=== PATIENT | female | born 1985 | race Caucasian/White ===

== ENCOUNTER 2018-04-25 18:43 | Emergency (ER) | payer BC ==
--- NOTE | 2018-04-25 19:18 | EDM.PDOC ---
ED HPI GENERAL MEDICAL PROBLEM - General Chief Complaint: Genitourinary Problem Stated Complaint: vaginal bleeding and cramping Time Seen by Provider: 04/25/18 19:02 Source of Information: Reports: Patient History Limitations: Reports: No Limitations - History of Present Illness INITIAL COMMENTS - FREE TEXT/NARRATIVE: Patient presents to ER with concerns of abnormal vaginal bleeding. She relates that she was around 11-12 weeks and last Friday, passed blood and tissue at home. Was seen in the [facility] and had an ultrasound done at that time which she states "looked okay" and they felt she would ultimately do well. She had light bleeding through the week. Was to be seen in follow up on but due to the icy roads and not bleeding all that much, she didn't go to the appointment. She started bleeding more heavily about 3 hours ago. Has had a dull constant pain in her lower abdomen this afternoon. Denies feeling lightheaded. Was sitting much of the time in the bathroom due to bleeding. Has passed large clots as well, one being around baseball size. Onset: Today, Sudden Duration: Hour(s): Location: Reports: Abdomen Quality: Reports: Ache, Dull Severity: Moderate Associated Symptoms: Denies: Fever/Chills, Nausea/Vomiting Lower Abdomen Pain Score (Numeric/FACES): 4 - Related Data Allergies Allergy/AdvReac Type Severity Reaction Status Date / Time erythromycin base AdvReac Nausea and Verified 04/25/18 18:54 [Erythromycin Base] Vomiting Home Meds: Home Meds Sertraline [Zoloft] 25 mg PO DAILY 04/25/18 [History] Past Medical History Psychiatric History: Reports: Depression - Past Surgical History Female Surgical History: Reports: Section, Other (See Below) Other Female Surgeries/Procedures: miscarriage x2 in last 6 months Musculoskeletal Surgical History: Reports: Arthroscopic Knee Social & Family History - Tobacco Use Smoking Status *Q: Never Smoker ED ROS GENERAL - Review of Systems Review Of Systems: See Below Constitutional: Denies: Fever, Chills, Malaise, Weakness, Decreased Appetite HEENT: Reports: No Symptoms Respiratory: Denies: Shortness of Breath Cardiovascular: Denies: Chest Pain, Edema, Lightheadedness Endocrine: Reports: No Symptoms GI/Abdominal: Reports: Abdominal Pain. Denies: Constipation, Diarrhea, Nausea, Vomiting : Reports: Other (abnormal bleeding) Musculoskeletal: Reports: No Symptoms Skin: Reports: No Symptoms Neurological: Reports: No Symptoms Psychiatric: Reports: Depression ED EXAM, RENAL/ - Physical Exam Exam: See Below Exam Limited By: No Limitations General Appearance: Alert, WD/WN, No Apparent Distress Ears: Normal External Exam, Normal TMs Nose: Normal Inspection, Normal Mucosa, No Blood Throat/Mouth: Normal Inspection, Normal Oropharynx Head: Normocephalic Neck: Normal Inspection, Supple, Non-Tender Respiratory/Chest: No Respiratory Distress, Lungs Clear, Normal Breath Sounds Cardiovascular: Regular Rate, Rhythm GI/Abdominal: Normal Bowel Sounds, Soft, Tender (suprapubic area) (Female) Exam: Vaginal Bleeding, Other (patient has been up to the bathroom 3 times since admission to ER. Has passed approximately 200 ml of blood with large clots present in the hat) Extremities: Normal Inspection, Normal Capillary Refill Neurological: Alert, Oriented Skin Exam: Warm, Dry Course - Vital Signs Last Recorded V/S: Last Vital Signs Temp 97.9 F 04/25/18 18:52 Pulse 92 04/25/18 18:52 Resp 20 04/25/18 18:52 BP 138/80 04/25/18 18:52 Pulse Ox 99 04/25/18 18:52 - Orders/Labs/Meds Labs: Laboratory Tests 04/25/18 Range/Units 18:58 WBC 9.7 (5.0-10.0) 10^3/uL RBC 4.37 (4.00-5.50) 10^6/uL Hgb 13.2 (12.0-16.0) g/dL Hct 38.3 (37.0-47.0) % MCV 87.6 (82.0-94.0) fL MCH 30.2 (27.0-32.0) pg MCHC 34.5 (33.0-38.0) g/dL RDW Coeff of Dwayne 12.4 (11.0-15.0) % Plt Count 262 (150-400) 10^3/uL Neut % (Auto) 55.0 (35-85) % Lymph % (Auto) 34.3 (10-55) % [place] % (Auto) 6.6 (0-16) % Eos % (Auto) 3.9 (0-5) % Baso % (Auto) 0.2 (0-3) % Neut # (Auto) 5.32 (1.80-7.00) 10^3/uL Lymph # (Auto) 3.32 (1.00-4.80) 10^3/uL [place] # (Auto) 0.64 (0.00-0.80) 10^3/uL Eos # (Auto) 0.38 (0.00-0.45) 10^3/uL Baso # (Auto) 0.02 10^3/uL - Re-Assessments/Exams Free Text/Narrative Re-Assessment/Exam: 04/25/18 contacted [facility] for pelvic ultrasound and possible D & C. Do not have surgical capabilities to do D & C tonight. Called [facility] and spoke with Dr. Alanis in ER. Accepted patient for transfer. Discussed risks and benefits of private vehicle transfer versus ambulance. would like to take patient and feels comfortable doing so. Is aware that she could become more lightheaded and crampy but they are comfortable with this. Aware of risk of worsening status, more bleeding. Is stable at the present time. BP good at 132/80. Hemoglobin 13.2. Benefits of transfer include ability to obtain ultrasound and possible surgical intervention as needed. Risks of no transfer includes worsening status to include excessive bleeding and . Benefits of non transfer include care close to home. Patient and agree to private vehicle transfer and in agreement with plan. Departure - Departure Time of Disposition: 19:34 Disposition: DC/Tfer to [facility] 02 Clinical Impression: Abnormal vaginal bleeding, Miscarriage - Discharge Information *PRESCRIPTION DRUG MONITORING PROGRAM REVIEWED*: No *COPY OF PRESCRIPTION DRUG MONITORING REPORT IN PATIENT EMILY: No Forms: ED Department Discharge Additional Instructions: 1. Transfer by private vehicle to [facility] with to Dr. Alanis in ER.
[2018-04-25] MEDS: Acetaminophen/HYDROcodone 325-5 MG Tab PO ONE (19:43)
== END 2018-04-25 19:50 ==
LOC: CC.ED 18:43
DX: O03.9 Complete or unspecified spontaneous abortion without complication (principal); F32.9 Major depressive disorder, single episode, unspecified; Z79.899 Other long term (current) drug therapy; Z88.1 Allergy status to other antibiotic agents
CPT/HCPCS: 36415; 85025; 99284; A9270-GY

== ENCOUNTER 2021-08-19 13:14 | Emergency (ER) | payer BC | END 2021-08-19 14:02 | disposition home or self-care (01) | LOC: CC.ED 13:14 | DX: U07.1 COVID-19 (principal); Z88.1 Allergy status to other antibiotic agents | CPT/HCPCS: 81003; 87804; 99283; 99284; U0002 ==